=== PATIENT | female | born 1990 | race Caucasian/White ===

== ENCOUNTER 2018-02-07 19:52 | Emergency (ER) | payer SELFPAY ==
[2018-02-07] MEDS ORDERED: ONDANSETRON ODT 8 MG TAB SL ONE ×2 (20:31→20:39)
[2018-02-07 20:39] VITALS: TEMP 98.7
[2018-02-07] MEDS ORDERED: PROMETHAZINE HCL INJ 25 MG in SODIUM CHLORIDE 0.9% 50ML 50 ML IVPB ONE (20:40)
[2018-02-07] MEDS ORDERED: PROMETHAZINE HCL INJ 25 MG/ML VIAL ONE (20:45)
[2018-02-07] MEDS ORDERED: SODIUM CHLORIDE 0.9% 50ML 50 ML ONE (20:48)
[2018-02-07] MEDS ORDERED: SODIUM CHLORIDE 0.9% 1000ML 1,000 ML IVS ONE (20:57)
--- NOTE | 2018-02-07 21:26 | RAD ---
EXAM DESCRIPTION: Abdomen Flat Upright CLINICAL HISTORY: N/V COMPARISON: None. FINDINGS: Single supine view of the abdomen was submitted. Single loop of mildly dilated bowel is in the left upper quadrant and could be transient. Air and stool extend to the rectum. Lung bases are clear. There is no other evidence of bowel obstruction. There is no abnormal calcification within the abdomen. There is no acute osseous process visualized. Moderate stool is in the colon. IMPRESSION: Moderate stool. Single loop of nonspecific dilated bowel in the left upper quadrant. If symptoms persist, follow-up is recommended but this could be transient. Electronically signed by: Jerome Ge 02/07/2018 9:24 PM CDT
--- NOTE | 2018-02-07 22:19 | ED.PDOC ---
History of Present Illness - General Chief Complaint: GI Problem Stated Complaint: nausea, vomitting, epigastric pain Time Seen by Provider: 02/07/18 20:56 Source: patient Exam Limitations: no limitations Additional Information: N/V ABDOMINAL CRAMPING. 2 DAYS, - History of Present Illness Severity: moderate Improving Factors: nothing Worsening Factors: nothing Associated Symptoms: denies symptoms Allergies/Adverse Reactions: Allergies Amoxicillin Allergy (Mild, Verified 02/07/18 20:38) Diarrhea Home Medications: Ambulatory Orders Non-Formulary Medication 1 bradford PO DAILY #3 mis 03/20/13 Dicyclomine HCl [Bentyl] 20 mg PO Q6HR PRN #20 tab 02/07/18 Ondansetron [Zofran Odt] 4 mg PO TID PRN #6 tab 02/07/18 Review of Systems - Review of Systems Constitutional: Denies: chills, fever EENTM: States: no symptoms reported Respiratory: Denies: cough, short of breath, wheezing Cardiology: Denies: chest pain, palpitations, syncope Gastrointestinal/Abdominal: States: abdominal pain, nausea, vomiting. Denies: diarrhea Genitourinary: Denies: dysuria, hematuria Musculoskeletal: States: no symptoms reported Skin: States: no symptoms reported Neurological: States: no symptoms reported Endocrine: States: no symptoms reported Hematologic/Lymphatic: States: no symptoms reported Past Medical History (General) - Patient Medical History Hx Seizures: No Hx Stroke: No Hx Dementia: No Hx Asthma: No Hx of COPD: No Hx Cardiac Disorders: No Hx Congestive Heart Failure: No Hx Pacemaker: No Hx Hypertension: No Hx Thyroid Disease: No Hx Diabetes: No Hx Gastroesophageal Reflux: No Hx Renal Disease: No Hx Cancer: No Hx of HIV: No Hx Hepatitis C: No Hx MRSA: No - Vaccination History Hx Tetanus, Diphtheria Vaccination: Yes - Female History Hx Last Menstrual Period: 06/18/12 Patient : No Expected Date of Delivery:: 03/23/13 Family Medical History - Family History Mother Living Status: Still Living Physical Exam - Physical Exam General Appearance: Alert, No apparent distress Eye Exam: bilateral normal Ears, Nose, Throat: hearing grossly normal, normal ENT inspection, other - MOIST MM Neck: non-tender, full range of motion, supple Respiratory: lungs clear, normal breath sounds, no respiratory distress Cardiovascular/Chest: regular rate, rhythm, no murmur Gastrointestinal/Abdominal: normal bowel sounds, soft, no organomegaly, other - MILD DIFFUSE TTP Back Exam: normal inspection, no CVA tenderness, no vertebral tenderness Extremity: normal range of motion, non-tender, normal inspection, no pedal edema Neurologic: alert, normal mood/affect Skin Exam: normal color, warm/dry Lymphatic: no adenopathy Progress - Progress Progress: 02/07/18 22:23 FEELS BETTER, NO FURTHER VOMITING. Departure - Departure Clinical Impression: Gastroenteritis Time of Disposition: 22:43 Disposition: Discharge to Home or Self Care Condition: Good Departure Forms: ED Discharge - Pt. Copy, Patient Portal Self Enrollment Instructions: Viral Gastroenteritis Referrals: Joe Reynolds MD [Primary Care Provider] - 1-2 Weeks Prescriptions: Dicyclomine HCl [Bentyl] 20 mg PO Q6HR PRN #20 tab PRN Reason: Abdominal Cramping Ondansetron [Zofran Odt] 4 mg PO TID PRN #6 tab PRN Reason: Nausea/Vomiting Home Medications: Ambulatory Orders Non-Formulary Medication 1 bradford PO DAILY #3 mis 03/20/13 Dicyclomine HCl [Bentyl] 20 mg PO Q6HR PRN #20 tab 02/07/18 Ondansetron [Zofran Odt] 4 mg PO TID PRN #6 tab 02/07/18
[2018-02-07] MEDS ORDERED: PROMETHAZINE TAB (ER DISP) 25 MG TAB PO ONE (22:52)
[2018-02-07 23:06] VITALS: BP 119/74; O2SAT 99
== END 2018-02-07 23:06 | disposition home or self-care (01) ==
LOC: ER 19:52
DX: K52.9 Noninfective gastroenteritis and colitis, unspecified (principal); Z88.3 Allergy status to other anti-infective agents